=== PATIENT | male | born 1970 | race Caucasian/White ===

== ENCOUNTER 2017-04-02 08:20 | Emergency (ER) | payer OTHER ==
[2017-04-02] MEDS ORDERED: Naloxone 2 MG/2 ML Syringe IVPUSH ONE (08:39)
[2017-04-02] MEDS ORDERED: Sodium Chloride 0.9% 1,000 ML IV ONE (08:43)
[2017-04-02 09:02] LABS: CHLORIDE,CL 102 mEq/L (98-106); SODIUM,NA 139 mEq/L (136-145)
--- NOTE | 2017-04-02 09:07 | EDM.PDOC ---
ED HPI Behavioral Health - General Chief Complaint: Neurological Problem Stated Complaint: difficulty walking and waking up Time Seen by Provider: 04/02/17 08:20 Source of Information: Reports: Patient, EMS, Family, RN, Significant Other Exam Limitations: Reports: Altered mental status - History of Present Illness INITIAL COMMENTS - FREE TEXT/NARRATIVE: This is a 46 year old female that presents to the ER. It is reported by EMS that the patient ingested Ambien and the pill bottle was empty. They report the pill bottle was filled on March 23 for qty of 30. Report should have about 20 pills remaining, but bottle is found empty. The patient arrives somnolent, but aroused. He does eye open when aroused and is tearful. The patient is breathing well on his own and not in respiratory distress. The patient attempts to answer my questions at times with mumbling speech. The patient [place] Scale is 12. I will not intubate at this time. The patient does vomit with pill fragments, he is able to attempt to sit himself upward prior to vomiting. Patient reports he has no complaints. He does report he was just trying to sleep because he has had difficulty sleeping lately. I have spoken to the . She has reported to me that the patient for the past year has had depression. She thought he was taking his depression medication, but he told her recently that he has never taken it. She reports over the past 3 days he has become more depressed at home. She reports that he has also had violent bursts at home the last 3 days. She reports that he has been punching holes in denny. She reports that last night he made the comment that it would be better off if he just . She reports that they went to bed last night. She reports she heard some noises in the morning, thought he was getting out of bed, went to check on him and she could not wake him this morning. She called 911. Onset of Symptoms: Reports: today Symptom Onset Date: 04/02/17 Severity: moderate Associated Symptoms: Reports: agitation, depression, suicidal thought - SAD Persons Scale (SPS) SPS Sex: Male SPS Age: Between 18-65 Years of Age SPS Depression: Yes SPS Previous Suicide Attempts: No SPS Alcohol Abuse/Drug Abuse: No SPS Rational Thinking Loss: Yes SPS Social Support Deficit: No SPS Organized Suicide Plan: Yes SPS No Spouse/Significant Other: No SPS Sickness: No SPS Sad Person Scale Score: 4 - Related Data Allergies Allergy/AdvReac Type Severity Reaction Status Date / Time No Known Allergies Allergy Verified 04/02/17 09:18 Home Medications: Home Meds Testosterone [Axiron] 1 dose IM ASDIRECTED 07/03/14 [History] Zolpidem [Ambien] 10 mg PO BEDTIME 07/03/14 [History] amLODIPine [Norvasc] 5 mg PO QAM 07/03/14 [History] Amoxicillin 875 mg PO DAILY 04/02/17 [History] Pantoprazole Sodium [Protonix] 40 mg PO DAILY 04/02/17 [History] Social & Family History - Alcohol Use Days Per Week of Alcohol Use: 0 - Recreational Drug Use Recreational Drug Use: No ED ROS GENERAL - Review of Systems Review Of Systems: See Below Constitutional: Reports: fatigue, other (Tired) HEENT: Reports: No symptoms Respiratory: Reports: No Symptoms Cardiovascular: Reports: No symptoms Endocrine: Reports: no symptoms GI/Abdominal: Reports: No symptoms : Reports: no symptoms Musculoskeletal: Reports: no symptoms Skin: Reports: no symptoms Neurological: Reports: Confusion, Difficulty Walking, Weakness (generally), Change in Speech (mumbled), Gait Disturbance Psychiatric: Reports: Agitation, Anxiety, Depression, Suicidal ideation Hematologic/Lymphatic: Reports: no symptoms Immunologic: Reports: no symptoms ED EXAM, BEHAVIORAL HEALTH - Physical Exam Exam: See Below Exam Limited By: Altered mental status General Appearance: mild distress Eye Exam: bilateral eye: normal inspection, PERRL Ears: normal external exam, normal canal, hearing grossly normal, normal TMs Nose: normal inspection, normal mucosa, no blood Throat/Mouth: Normal inspection, Normal lips, Normal teeth, Normal gums, Normal oropharynx, Normal voice, No airway compromise Head: atraumatic, normocephalic Neck: normal inspection, supple, non-tender Respiratory/Chest: no respiratory distress, lungs clear, normal breath sounds, no accessory muscle use, chest non-tender, other (no snoring respirations on arrival. No respiratory distress on arrival. ) Cardiovascular: normal peripheral pulses, regular rate, rhythm, no edema, no gallop, no JVD, no murmur, no rub GI/Abdominal: soft, non tender Extremities: normal inspection, non-tender, no pedal edema, normal capillary refill Neurological: disoriented to place (does not answer this question for me), disoriented to time (does not answer this question for me), slow response to commands, withdraws to pain, other (mumbled speech, slow to respond. Eye opening with arousal) Psychiatric: tearful, agitated (at times) Skin Exam: Warm, Dry, Intact, Normal color, No rash EKG INTERPRETATION EKG Date: 04/02/17 Time: 08:44 Rhythm: other (tacycardia) Rate (beats/min): 111 Comparison: NA - no prior EKG COURSE, BEHAVIORAL HEALTH COMP - Course Vital Signs: Last Vital Signs Temp 96.7 F 04/02/17 10:06 Pulse 89 04/02/17 10:06 Resp 20 04/02/17 10:06 BP 132/74 04/02/17 10:06 Pulse Ox 95 04/02/17 10:06 Orders, Labs, Meds: Active Orders 24 hr Category Date Time Status Chest 1V Frontal [CR] Routine Exams 04/02/17 Taken Head wo Cont [CT] Routine Exams 04/02/17 Taken ACETAMINOPHEN [REF] Stat Lab 04/02/17 09:00 Received DRUG SCREEN URINE BIORAD [URCHEM] Stat Lab 04/02/17 08:39 Ordered ETHANOL (MEDICAL) [REF] Stat Lab 04/02/17 09:00 Received SALICYLATE [REF] Stat Lab 04/02/17 09:00 Received URINALYSIS W/MICROSCOPIC [UA W/MICROSCOPIC] [URIN] Stat Lab 04/02/17 08:39 Ordered EKG 12 Lead [EK] Stat Ther 04/02/17 08:39 Ordered Laboratory Tests 04/02/17 04/02/17 Range/Units 08:39 08:39 WBC 9.0 (5.0-10.0) 10^3/uL RBC 5.17 (4.50-6.00) 10^6/uL Hgb 15.6 (14.0-18.0) g/dL Hct 45.4 (40.0-54.0) % MCV 87.8 (82.0-94.0) fL MCH 30.2 (27.0-32.0) pg MCHC 34.4 (33.0-38.0) g/dL RDW Coeff of [place] 12.9 (11.0-15.0) % Plt Count 178 (150-400) 10^3/uL Neut % (Auto) 81.6 (35-85) % Lymph % (Auto) 13.8 (10-55) % [place] % (Auto) 4.2 (0-16) % Eos % (Auto) 0.2 (0-5) % Baso % (Auto) 0.2 (0-3) % Neut # (Auto) 7.33 H (1.80-7.00) 10^3/uL Lymph # (Auto) 1.24 (1.00-4.80) 10^3/uL [place] # (Auto) 0.38 (0.00-0.80) 10^3/uL Eos # (Auto) 0.02 (0.00-0.45) 10^3/uL Baso # (Auto) 0.02 10^3/uL Sodium 139 (136-145) mEq/L Potassium 3.7 (3.5-5.0) mEq/L Chloride 102 (98-106) mEq/L Carbon Dioxide 26 (21-32) mmol/L BUN 15 (7-18) mg/dL Creatinine 1.0 (0.7-1.3) mg/dL Est Cr Clr Drug Dosing TNP Estimated GFR (MDRD) > 60 (>=60) mL/min Glucose 129 H (75-99) mg/dL Calcium 8.7 (8.4-10.1) mg/dL Magnesium 2.1 (1.8-2.4) mg/dL Total Bilirubin 0.5 (0.0-1.0) mg/dL AST 24 (15-37) U/L ALT 58 (12-78) U/L Alkaline Phosphatase 58 (46-116) U/L Troponin I 0.020 (0.00-0.06) ng/mL Total Protein 7.2 (6.4-8.2) g/dL Albumin 3.9 (3.4-5.0) g/dL Medications Discontinued Medications Generic Name Dose Route Start Last Admin Trade Name Freq PRN Reason Stop Dose Admin Sodium Chloride 1,000 mls @ 1,000 mls/hr 04/02/17 08:43 04/02/17 09:12 Normal Saline IV 04/02/17 09:42 1,000 mls/hr .BOLUS ONE Administration Naloxone HCl 1 mg 04/02/17 08:39 05/07/17 08:45 Narcan IVPUSH 04/02/17 08:40 1 mg ONETIME ONE Administration Ondansetron HCl 4 mg 04/02/17 09:22 04/02/17 09:27 Zofran IVPUSH 04/02/17 09:23 4 mg NOW STA Administration Re-Assessment/Re-Exam: CT Head: Discussed with radiologist: No acute findings. small vessell or white matter. If neurological symptoms continue, may recommend an MRI later. If neurological symptoms improve, not needed. CXR: Low lung volumes, no infiltrates. Medical Clearance: 04/02/17 09:52 This patient has not been medically cleared. He is being transferred to [facility]. The RN has attempted mulitple times to obtain a urine from the patient, he is unable to urinate on his own. The RN then attempted multiple times to place a Wong for urine and drug screen. The patient has multiple time attempted to smack the hands of the nurse and has shown possible combative behavior during this process. The RN does not feel safe attempting this again. I am transferring the patient via EMS to [facility]. I have spoken to Dr. Rand in the ER. He has accepted this patient. The is now at bedside. The patient keeps saying now that he wants to go home. I have instructed the patient to just relax. I instructed to him that he is not able to go home at this time. He then lays back down in the stretcher. I have filled out an Emergency Hold on this patient. With suicidal attempt, depression, and violent behaviors he is not mentally able to make a decision to go home. He is not safe to go home. 04/02/17 10:50 Pt is awake and report that he had to urinate. Pt was able to stand with two person assist with unsteady gait and use a urinal to urinate. Pt did urinate some on the floor. Pt then put back into stretcher and asked why he was in alf. Explained to pt he was at hospital and why. He said "okay" and laid back down. Departure - Departure Time of Disposition: 09:29 Disposition: DC/Tfer to Acute Hospital 02 Condition: fair Clinical Impression: Overdose Qualifiers: Encounter type: initial encounter Injury intent: intentional self-harm Qualified Code(s): T50.902A - Poisoning by unspecified drugs, medicaments and biological substances, intentional self-harm, initial encounter Suicide attempt by drug ingestion Qualifiers: Encounter type: initial encounter Qualified Code(s): T50.902A - Poisoning by unspecified drugs, medicaments and biological substances, intentional self-harm , initial encounter Forms: ED Department Discharge - My Orders Last 24 Hours: My Active Orders 04/02/17 Chest 1V Frontal [CR] Routine Head wo Cont [CT] Routine 04/02/17 08:39 DRUG SCREEN URINE BIORAD [URCHEM] Stat URINALYSIS W/MICROSCOPIC [UA W/MICROSCOPIC] [URIN] Stat EKG 12 Lead [EK] Stat 04/02/17 09:00 ACETAMINOPHEN [REF] Stat ETHANOL (MEDICAL) [REF] Stat SALICYLATE [REF] Stat - Assessment/Plan Last 24 Hours: My Active Orders 04/02/17 Chest 1V Frontal [CR] Routine Head wo Cont [CT] Routine 04/02/17 08:39 DRUG SCREEN URINE BIORAD [URCHEM] Stat URINALYSIS W/MICROSCOPIC [UA W/MICROSCOPIC] [URIN] Stat EKG 12 Lead [EK] Stat 04/02/17 09:00 ACETAMINOPHEN [REF] Stat ETHANOL (MEDICAL) [REF] Stat SALICYLATE [REF] Stat Plan: PLEASE SEE RN NOTE FOR PFSH. This patient is being transferred to [facility]. The risks of the transfer are mvc, , intubation, patient hurting self, attempting to flee ambulance, combativeness. The benefits of transfer are speciality care of critical care, and psychiatric evaluation, with suicidal watch. The benefits of staying in [place] are close to family and home. The risks with staying in [place] are , suicidal attempt again, no psychiatric services emergently.
[2017-04-02] MEDS ORDERED: Ondansetron 4 MG/2 ML SDV IVPUSH STA (09:22)
[2017-04-02 10:07] VITALS: BP 132/74
== END 2017-04-02 11:00 ==
LOC: CC.ED 08:20
DX: T42.6X2A Poisoning by other antiepileptic and sedative-hypnotic drugs, intentional self-harm, initial encounter (principal); Z79.899 Other long term (current) drug therapy
CPT/HCPCS: 36415; 70450; 71010; 80053; 80305; 81001; 83735; 84484; 85025; 93005; 96361; 96374; 96375; 99285; G0480; J2310; J2405; J7030

== ENCOUNTER 2018-03-23 05:10 | Emergency (ER) | payer OTHER ==
[2018-03-23 05:35] VITALS: BP 147/88
--- NOTE | 2018-03-23 05:55 | EDM.PDOC ---
ED HPI GENERAL MEDICAL PROBLEM - General Chief Complaint: General Stated Complaint: arm pain Time Seen by Provider: 03/23/18 05:40 Source of Information: Reports: Patient History Limitations: Reports: No Limitations - History of Present Illness INITIAL COMMENTS - FREE TEXT/NARRATIVE: States that when he woke at 0230 to go to the bathroom and he wiped his hands he had pain in the left hand. pain was from the knuckles up to the upper arm. He denied any chest pain, SOB or diaphoresis. He did take some baby ASA. When he arrived here his pain was more in the knuckles when he would open and close his hand. No radiation of the pain noted. States that it felt "like it was numb " and that is gone. States that on Monday he has using the hatchet to chop down a few tree branches. Denies any other over use of hand. Onset: Today Location: Reports: Upper Extremity, Left Quality: Reports: Ache Severity: Mild Associated Symptoms: Reports: No Other Symptoms Treatments SPLITTER MACHINE: Reports: Aspirin Left Arm Pain Score (Numeric/FACES): 2 - Related Data Allergies Allergy/AdvReac Type Severity Reaction Status Date / Time latex Allergy Cannot Verified 03/23/18 05:53 Remember Home Meds: Home Meds Zolpidem [Ambien] 10 mg PO BEDTIME 07/03/14 [History] amLODIPine [Norvasc] 5 mg PO QAM 07/03/14 [History] Pantoprazole Sodium [Protonix] 40 mg PO DAILY 04/02/17 [History] Losartan/Hydrochlorothiazide [Losartan-HCTZ 100-12.5 MG] 1 each PO DAILY [History] Sertraline [Zoloft] 50 mg PO DAILY 09/08/17 [History] Past Medical History Cardiovascular History: Reports: Hypertension Oncologic (Cancer) History: Reports: Basal Cell Carcinoma - Past Surgical History HEENT Surgical History: Reports: Naso-Sinus Surgery GI Surgical History: Reports: Hernia Repair/Other Social & Family History - Family History Family Medical History: Noncontributory - Tobacco Use Smoking Status *Q: Never Smoker Second Hand Smoke Exposure: No - Alcohol Use Days Per Week of Alcohol Use: 0 - Recreational Drug Use Recreational Drug Use: No Recreational Drug Type: Reports: Benzodiazepines ED ROS GENERAL - Review of Systems Review Of Systems: See Below Constitutional: Reports: No Symptoms HEENT: Reports: No Symptoms Respiratory: Denies: Shortness of Breath Cardiovascular: Denies: Chest Pain GI/Abdominal: Reports: Constipation (was in clinic yesterday to see Wander Avery and was told that he is constipated. Abdomnal pain is gone from yesterday.) Musculoskeletal: Reports: Hand Pain Skin: Reports: No Symptoms Neurological: Reports: No Symptoms ED EXAM, GENERAL - Physical Exam Exam: See Below Exam Limited By: No Limitations General Appearance: Alert, WD/WN, No Apparent Distress Ears: Normal External Exam, Normal Canal, Normal TMs Nose: Normal Inspection Throat/Mouth: Normal Inspection, Normal Oropharynx, No Airway Compromise Head: Atraumatic, Normocephalic Neck: Normal Inspection, Supple, Non-Tender, Full Range of Motion Respiratory/Chest: No Respiratory Distress, Lungs Clear, Normal Breath Sounds Cardiovascular: Normal Peripheral Pulses, Regular Rate, Rhythm, No Murmur GI/Abdominal: Normal Bowel Sounds, Soft, Non-Tender Extremities: Normal Inspection, Normal Range of Motion, Non-Tender, No Pedal Edema, Normal Capillary Refill Neurological: Alert, Oriented Skin Exam: Warm, Dry, Intact EKG INTERPRETATION EKG Date: 03/23/18 Rhythm: NSR Course - Vital Signs Last Recorded V/S: Last Vital Signs Temp 97.9 F 03/23/18 05:26 Pulse 72 03/23/18 05:26 Resp 18 03/23/18 05:26 BP 147/88 H 03/23/18 05:26 Pulse Ox 98 03/23/18 05:26 - Orders/Labs/Meds Orders: Active Orders 24 hr Category Date Time Status EKG Documentation Completion [RC] STAT Care 03/23/18 05:15 Active BASIC METABOLIC PANEL,BMP [CHEM] Stat Lab 03/23/18 05:24 Ordered CBC WITH AUTO DIFF [HEME] Stat Lab 03/23/18 05:24 Ordered CREATINE KINASE,CK [CHEM] Stat Lab 03/23/18 05:24 Ordered LACTATE DEHYDROGENASE,LDH [CHEM] Stat Lab 03/23/18 05:24 Ordered TROPONIN I [CHEM] Stat Lab 03/23/18 05:24 Ordered - Re-Assessments/Exams Free Text/Narrative Re-Assessment/Exam: 03/23/18 06:16 In to discuss that his labs are all normal as well as EKG is. Discussed that it is most likely musculoskeletal in nature. Will discharge at this time. Departure - Departure Time of Disposition: 06:17 Disposition: Home, Self-Care 01 Condition: Good Clinical Impression: Left arm pain - Discharge Information Referrals: Walt Medina MD [Primary Care Provider] - Additional Instructions: If pain returns to the arm return to clinic to be reevaluated. Tylenol or advil as needed for discomfort - Problem List & Annotations (1) Left arm pain SNOMED Code(s): 987372781 Code(s): M79.602 - PAIN IN LEFT ARM Status: Acute Priority: High Current Visit: Yes - Problem List Review Problem List Initiated/Reviewed/Updated: Yes - My Orders Last 24 Hours: My Active Orders 03/23/18 05:15 EKG Documentation Completion [RC] STAT 03/23/18 05:24 BASIC METABOLIC PANEL,BMP [CHEM] Stat CBC WITH AUTO DIFF [HEME] Stat CREATINE KINASE,CK [CHEM] Stat LACTATE DEHYDROGENASE,LDH [CHEM] Stat TROPONIN I [CHEM] Stat - Assessment/Plan Last 24 Hours: My Active Orders 03/23/18 05:15 EKG Documentation Completion [RC] STAT 03/23/18 05:24 BASIC METABOLIC PANEL,BMP [CHEM] Stat CBC WITH AUTO DIFF [HEME] Stat CREATINE KINASE,CK [CHEM] Stat LACTATE DEHYDROGENASE,LDH [CHEM] Stat TROPONIN I [CHEM] Stat
[2018-03-23 06:11] LABS: CHLORIDE,CL 106 mEq/L (98-106); SODIUM,NA 141 mEq/L (136-145)
== END 2018-03-23 06:25 | disposition home or self-care (01) ==
LOC: CC.ED 05:10
DX: M79.602 Pain in left arm (principal); I10 Essential (primary) hypertension; Z91.040 Latex allergy status; Z79.899 Other long term (current) drug therapy
CPT/HCPCS: 36415; 80048; 82550; 83615; 84484; 85025; 93005; 99283

== ENCOUNTER → 2020-06-19 | Day surgery (SDC) | payer OTHER ==
[~2020-06-19] MED LIST: Ketamine 200 MG/20 ML MDV IV ONE; Lactated Ringers 1,000 ML IV SCH; Propofol 200 MG/20 ML SDV IV ONE; fentaNYL 100 MCG/2 ML SDV IV ONE
[2020-06-19 10:54] VITALS: BP 144/76; PULSE 58
--- NOTE | 2020-06-19 14:43 | OR ---
DATE OF OPERATION: 06/19/2020 PREOPERATIVE DIAGNOSIS: COLON CANCER SCREENING. POSTOPERATIVE DIAGNOSIS: COLON CANCER SCREENING. SURGEON: Walt Medina MD PROCEDURE: FULL-LENGTH COLONOSCOPY WITH FORCEPS POLYP REMOVAL X1. ANESTHESIA: MAC. COMPLICATIONS: None. SPECIMEN: Small sessile polyp, distal transverse colon, less than 0.5 cm. FINDINGS: 1. Full-length colonoscopy. 2. Mild sigmoid diverticulosis. 3. Small sessile polyp, less than 0.5 cm, distal transverse colon. 4. Poor bowel prep. RECOMMENDATIONS: The patient should have followup in 5 years. Followup colonoscopy in 5 years. INDICATIONS: The patient came in requesting routine screening colonoscopy due to his age. DESCRIPTION OF PROCEDURE: The patient was prepped and draped, placed in the left lateral decubitus position. A lubricated Olympus colonoscope was inserted and with relative ease advanced to the cecum. Unfortunately, the patient's prep was extremely poor, had a lot of liquid stool throughout the colon which was dark and a lot of particulate matter. It was hard to suction. The scope would repeatedly get plugged. There were areas we just could not visualize due to this. We were able to directly visualize the ileocecal valve and appendiceal orifice. Upon withdrawal, the cecum appeared benign. We did irrigate that quite thoroughly. There was a large area of the right colon that was hard to see just due to the volume of stool there. In the distal transverse colon, we were able to find 1 small 3 mm sessile polyp removed in its entirety with a forceps biopsy x2. Many areas in the left colon were hard to visualize. I could find no other polyps, masses, ulceration, or bleeding sites. No vascular abnormalities or signs of colitis. The patient does have some mild diverticular disease in the left colon. The rectal vault had a significant amount of stool. We irrigated quite thoroughly. We were able to get most of this out. No gross abnormalities could be seen. I was able to retroflex and see no perianal lesions. Air was suctioned, the scope removed without complication. JORGE A/LUPE /[id number]
== END ==
LOC: CC.SDS 08:28
PROVIDERS: ATTEND Family Medicine
DX: Z12.11 Encounter for screening for malignant neoplasm of colon (principal); D12.3 Benign neoplasm of transverse colon; K57.30 Diverticulosis of large intestine without perforation or abscess without bleeding; F32.9 Major depressive disorder, single episode, unspecified; I10 Essential (primary) hypertension; E66.01 Morbid (severe) obesity due to excess calories; K21.9 Gastro-esophageal reflux disease without esophagitis; G47.30 Sleep apnea, unspecified; F41.9 Anxiety disorder, unspecified; G62.9 Polyneuropathy, unspecified; Z91.040 Latex allergy status; Z79.899 Other long term (current) drug therapy; Z83.71 Family history of colonic polyps; Z68.37 Body mass index [BMI] 37.0-37.9, adult
CPT/HCPCS: 00812; J2704; J3010; J7120

== ENCOUNTER → 2023-07-20 | Day surgery (SDC) | payer BC ==
[~2023-07-20] MED LIST changes: +Glycopyrrolate 0.2 MG/ML SDV ONE; +HYDROmorphone 1 MG/ML Syringe ONE; -Ketamine 200 MG/20 ML MDV IV ONE; +Ketorolac 30 MG/ML SDV ONE; +Lidocaine 1% with EPINEPHrine 1:100,000 20 ML MDV SUBCUT ONE; +Lidocaine 2% 20 ML MDV ONE; +Metoclopramide 10 MG/2 ML SDV ONE; +Midazolam 1 MG/ML 2 ML SDV ONE; +Neostigmine Methylsulfate 10 MG/10 ML MDV ONE; +Ondansetron 4 MG/2 ML SDV ONE; -Propofol 200 MG/20 ML SDV IV ONE; +Propofol 200 MG/20 ML SDV ONE; +Rocuronium 50 MG/5 ML Vial ONE; +Succinylcholine 200 MG/10 ML MDV ONE; +ceFAZolin 2 GM Vial IVPUSH ONE; -fentaNYL 100 MCG/2 ML SDV IV ONE; +fentaNYL 50 MCG/ML SDV ONE
[2023-07-20 13:30] VITALS: BP 130/74; PULSE 84
== END ==
LOC: CC.SDS 07:59
PROVIDERS: ATTEND Surgery
DX: K43.2 Incisional hernia without obstruction or gangrene (principal); F41.9 Anxiety disorder, unspecified; K21.9 Gastro-esophageal reflux disease without esophagitis; I10 Essential (primary) hypertension; G47.00 Insomnia, unspecified; G47.30 Sleep apnea, unspecified; G62.9 Polyneuropathy, unspecified; F34.1 Dysthymic disorder; Z91.040 Latex allergy status; Z79.899 Other long term (current) drug therapy; Z98.890 Other specified postprocedural states
CPT/HCPCS: 00752; J0330; J0690; J1170; J1885; J2250; J2405; J2704; J2710; J2765; J3010; J3490; J7120